=== PATIENT | female | born 1960 | race Caucasian/White ===

== ENCOUNTER 2018-01-05 13:51 | Outpatient (CLI) | payer BC ==
--- NOTE | 2018-01-05 15:58 | CT ---
NONCONTRAST CT ABDOMEN AND PELVIS: Date: 01/05/18 HISTORY: Hematuria and right flank pain. Painful urination. History of gastric sleeve procedure and hysterecto my. COMPARISON: 03/07/11. FINDINGS: Vascular calcifications seen in the coronary arteries, as well as involving the abdominal aorta and i liac arteries. Small hiatal hernia is present. There are postsurgical changes related to patient's gastric sleeve pr ocedure. Postsurgical changes related to cholecystectomy are also noted. Lung bases are clear. There is a nonobstructing 5.0 mm calculus seen in the inferior pole right kidney with much smaller ca lcification measuring approximately 3-4 mm seen within the mid portion of left kidney which may repre sent a nonobstructing renal calculus, although some images suggest this may represent a cortically ba sed calcification. There is mild right hydronephrosis and hydroureter. While the distal right ureter is not well seen, along the expected course of the distal right ureter, at the level of the supraacet abular region, there is an approximately 3.0 mm calcification which is thought to be related to a dis camila ureteral calculus. There are multiple phleboliths seen in the pelvis. No left ureteral calculus i s present. There is an exophytic hypodense left renal lesion present, as well as a hypodense subcentimeter lesio n seen in the mid portion of right kidney, and probably in the inferior pole of the right kidney. The se hypodense lesions were seen on prior CT exam in 2010 and statistically likely represent cysts. The liver, spleen, pancreas, bilateral adrenal glands and incompletely distended urinary bladder demo nstrate a grossly normal nonenhanced CT appearance. There is evidence of hysterectomy. Colonic diverticulosis is present. There are postsurgical changes at the cecal apex, likely related to prior appendectomy. IMPRESSION: 1. Mild right hydronephrosis with a calcification along the expected course of the distal right uret er, but the distal right ureter is difficult to adequately evaluate due to multiple unopacified struc tures. However, this is likely related to a partially obstructing distal right ureteral calculus. 2. Nonobstructing bilateral renal calculi. 3. Bilateral renal cysts. 4. Postsurgical changes of the abdomen and pelvis as described above. 5. Colonic diverticulosis. POS: PEREZ
== END 2018-01-05 13:52 | disposition home or self-care (01) ==
LOC: CT 13:51
PROVIDERS: ATTEND Family Medicine
DX: R31.9 Hematuria, unspecified (principal); N13.2 Hydronephrosis with renal and ureteral calculous obstruction; N28.1 Cyst of kidney, acquired; K57.30 Diverticulosis of large intestine without perforation or abscess without bleeding; Z90.710 Acquired absence of both cervix and uterus
CPT/HCPCS: 74176

== ENCOUNTER 2018-01-17 07:50 | Outpatient (CLI) | payer BC ==
[2018-01-17] MEDS ORDERED: Iopamidol 300 61% 100 ML VIAL FS ONE (08:16)
--- NOTE | 2018-01-17 10:16 | RAD ---
IVP: 01/17/2018 HISTORY: Ureteral calculi and renal calculi. The patient is having pelvic pain. Prior CT examination suggest ed a distal right ureteral calculus. 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 Renal shadows are mostly obscured. A ra diopaque suture overlies the left upper quadrant. There are multiple calcifications overlying the pelvis, the majority of which likely represent phlebo liths, as noted on prior CT examination on 01/05/2018. A distal right ureteral calculus could not be entire excluded, near the region of the right UVJ. IVP: There are prompt and symmetric bilateral nephrogram phases of enhancement with opacification of each renal collecting system on the immediate image. Subsequent imaging demonstrates a normal appea ring left renal collecting system and a segmentally visualized left ureter without hydronephrosis or hydroureter on the left. There is mild right hydronephrosis and hydroureter with columning of the ureter down to the level of the right UVJ. There is a calcification that overlies the right UVJ, which is seen on the supine and oblique imaging and likely represents a tiny distal right UVJ calculus, resulting in the mild right hydronephrosis and hydroureter. The urinary bladder is incompletely distended but is otherwise grossly normal in appearance. There i s no post void residual. There is persistent contrast seen within the right renal collecting system and right ureter on the post void imaging, with emptying of the left renal collecting system and uret er. IMPRESSION: Right hydronephrosis and hydroureter with columning of contrast in the ureter, down to the level of t he right ureterovesical junction, where there is an overlying tiny calcification, probably related to a distal right ureterovesical junction calculus. POS: PEREZ
== END 2018-01-17 07:51 | disposition home or self-care (01) ==
LOC: RAD 07:50
PROVIDERS: ATTEND Urology
DX: N13.2 Hydronephrosis with renal and ureteral calculous obstruction (principal); N28.89 Other specified disorders of kidney and ureter
CPT/HCPCS: 74410

== ENCOUNTER 2019-06-21 15:45 | Outpatient (CLI) | payer BC ==
--- NOTE | 2019-07-16 13:04 | MMO ---
Bilateral MAMMO Bilat Screen [facility]. CLINICAL HISTORY: Patient is 59 years old and is seen for screening. The patient has the following family history of breast cancer: mother, malignant (generic). The patient has no personal history of cancer. VIEWS: The views performed were: bilateral craniocaudal with tomosynthesis and bilateral mediolateral oblique with tomosynthesis. This study has been interpreted with the assistance of computer-aided detection. MAMMOGRAM FINDINGS: There are scattered fibroglandular densities. Finding 1: There are benign appearing calcifications seen in both breasts. Finding 2: There is a lobular mass measuring 6 millimeters with indistinct margins seen in the left breast at 12 o'clock. IMPRESSION: FINDING 1: CALCIFICATIONS IN BOTH BREASTS ARE BENIGN. FINDING 2: MASS IN THE LEFT BREAST REQUIRES ADDITIONAL EVALUATION. ADDITIONAL PROJECTIONS (LEFT CRANIOCAUDAL SPOT COMPRESSION; LEFT MEDIOLATERAL OBLIQUE SPOT COMPRESSION; AND LEFT MEDIOLATERAL) ARE RECOMMENDED. AN ULTRASOUND EXAM IS RECOMMENDED IF NEEDED. ADDITIONAL IMAGING. THE RESULTS OF THIS EXAM WERE SENT TO THE PATIENT. ACR BI-RADS Category 0 - Incomplete: Need additional imaging evaluation. [facility] will notify the patient of the need for additional imaging services. MAMMOGRAPHY NOTE: 1. A negative mammogram report should not delay a biopsy if a dominant of clinically suspicious mass is present. 2. Approximately 10% to 15% of breast cancers are not detected by mammography. 3. Adenosis and dense breasts may obscure an underlying neoplasm. Reported by: GRECIA GUZMAN MD Electonically Signed: [id number]
== END 2019-06-21 15:46 | disposition home or self-care (01) ==
LOC: BICMAMMO 15:45
PROVIDERS: ATTEND Family Medicine
DX: Z12.31 Encounter for screening mammogram for malignant neoplasm of breast (principal); R92.1 Mammographic calcification found on diagnostic imaging of breast; N63.22 Unspecified lump in the left breast, upper inner quadrant; Z80.3 Family history of malignant neoplasm of breast
CPT/HCPCS: 77063; 77067

== ENCOUNTER 2019-07-26 14:11 | Outpatient (CLI) | payer BC ==
--- NOTE | 2019-07-26 14:54 | MMO ---
Left Breast MAMMO Unilat Diag [facility]. CLINICAL HISTORY: Patient is 59 years old and is seen for additional evaluation requested from prior study. The patient has the following family history of breast cancer: mother, malignant (generic). The patient has no personal history of cancer. VIEWS: The views performed were: left craniocaudal spot compression with tomosynthesis; left mediolateral oblique spot compression with tomosynthesis; and left mediolateral with tomosynthesis. FILMS COMPARED: The present examination has been compared to prior imaging studies performed at [facility] on 06/21/2019 and 07/26/2019. This study has been interpreted with the assistance of computer-aided detection. MAMMOGRAM FINDINGS: There are scattered fibroglandular densities. There is a fat containing, oval mass measuring 5 millimeters with circumscribed margins seen in the left breast. This is demonstrated to be an intramammary lymph node by ultrasound. There are no suspicious masses, suspicious calcifications, or new areas of architectural distortion. IMPRESSION: THERE IS NO MAMMOGRAPHIC EVIDENCE OF MALIGNANCY. A ROUTINE FOLLOW-UP MAMMOGRAM IN 1 YEAR IS RECOMMENDED. THE RESULTS OF THIS EXAM WERE SENT TO THE PATIENT. ACR BI-RADS Category 2 - Benign finding MAMMOGRAPHY NOTE: 1. A negative mammogram report should not delay a biopsy if a dominant of clinically suspicious mass is present. 2. Approximately 10% to 15% of breast cancers are not detected by mammography. 3. Adenosis and dense breasts may obscure an underlying neoplasm. Reported by: TODD SANDERSON MD Electonically Signed: [id number]
--- NOTE | 2019-07-26 15:01 | ULT ---
LIMITED LEFT BREAST ULTRASOUND: 07/26/19 PROVIDED CLINICAL HISTORY: Abnormal mammogram. FINDINGS: Limited sonographic interrogation was performed of the left breast in the region of mammographic conc tyrone. A small intramammary lymph node is seen in this region. This corresponds to the mammogram findin g. No concerning sonographic findings are evident. IMPRESSION: BIRADS 2: Benign Finding(s) Routine annual screening mammography (for women over age 40).
== END 2019-07-26 14:12 | disposition home or self-care (01) ==
LOC: BICMAMMO 14:11
PROVIDERS: ATTEND Family Medicine
DX: N63.20 Unspecified lump in the left breast, unspecified quadrant (principal)
CPT/HCPCS: G0279